=== PATIENT | female | born 1960 | race Caucasian/White ===

== ENCOUNTER 2019-08-27 14:27 | Inpatient (IN) | payer MEDICAID ==
[~2019-08-27] VITALS: Ht 162.6 cm; Wt 71.9 kg
[2019-08-27] VITALS (29 sets, daily range): BP systolic 57–113; BP diastolic 33–87; BMI 20.6
[2019-08-27 15:18] LABS: KETONE - SERUM LARGE mg/dL (NEGATIVE)
[2019-08-27 15:20] LABS: ALBUMIN 2.4 g/dL (3.4-5.0); ALKALINE PHOSPHATASE 143 U/L (46-116); ALT (SGPT) 16 U/L (10-68); BILIRUBIN - TOTAL 0.57 mg/dL (0.2-1.3); CREATININE - SERUM 2.2 mg/dL (0.6-1.3); MAGNESIUM - SERUM 2.8 mg/dL (1.8-2.4); PROTEIN - SERUM 5.8 g/dL (6.4-8.2); UREA NITROGEN 63 mg/dL (7-18); eGFR NON AFRICAN AMERICAN 24 mL/min (90-120)
[2019-08-27 16:12] LABS: CALC OSMOLALITY 315 mosm/kg (275-300); CHLORIDE - SERUM 92 mmol/L (98-107); POTASSIUM - SERUM 5.2 mmol/L (3.5-5.1)
[2019-08-27 16:13] LABS: CALCIUM 9.6 mg/dL (8.5-10.1)
[2019-08-27 16:15] LABS: CARBON DIOXIDE 6.9 mmol/L (21.0-32.0); GLUCOSE 907 mg/dL (74-106); SODIUM 126 mmol/L (136-145)
[2019-08-27 16:19] LABS: HEMATOCRIT 36.3 % (36.0-48.0); MCH 27.4 pg (26.0-34.0); MCHC 33.1 g/dL (31.0-37.0); MCV 82.9 fL (80.0-100.0); MEAN PLATELET VOLUME 10.4 fL (7.4-10.4); PLATELET COUNT 258 10x3/uL (130-400); RBC 4.38 10x6/uL (4.00-5.40); RDW 13.7 % (11.5-14.5); WBC 13.4 10x3/uL (4.8-10.8)
[2019-08-27 16:30] LABS: APPEARANCE HAZY (CLEAR); BILIRUBIN NEGATIVE (NEGATIVE); COLOR YELLOW (YELLOW); GLUCOSE 1000 mg/dL (NEGATIVE); KETONE MODERATE mg/dL (NEGATIVE); NITRITE NEGATIVE (NEGATIVE); PROTEIN TRACE mg/dL (NEGATIVE); SPECIFIC GRAVITY 1.015 (1.005-1.020); UROBILINOGEN NORMAL (NORMAL)
[2019-08-27 16:31] LABS: WHITE CELLS - URINE OCC /hpf (NEGATIVE)
[2019-08-27 16:32] LABS: BACTERIA FEW /hpf (NEGATIVE); RED CELLS - URINE 0-5 /hpf (0-5)
[2019-08-27 16:34] LABS: UDS - AMPHET NEGATIVE QUAL (NEGATIVE); UDS - BARB NEGATIVE QUAL (NEGATIVE); UDS - BENZO NEGATIVE QUAL (NEGATIVE); UDS - COCAINE NEGATIVE QUAL (NEGATIVE); UDS - OPIATE NEGATIVE QUAL (NEGATIVE); UDS - PCP NEGATIVE QUAL (NEGATIVE); UDS - THC NEGATIVE QUAL (NEGATIVE)
[2019-08-27 16:38] LABS: EOSINOPHILS 1 % (0-7); LYMPHOCYTES 18 % (15-50); NEUTROPHILS 80 % (40-80); PLATELET ESTIMATE NORMAL
--- NOTE | 2019-08-27 17:49 | NUR ---
PATIENT RECEIVED FROM HOME VIA EMS C/O AMS, PATIENT WAS FOUND IN BED BY EMS, PATIENT DOES NOT COMMUNICATE VERBALLY, WILL OPEN EYES, DOES NOT ACKNOWLEDGE VOICE COMMANDS, DISORIENTED TO PERSON PLACE AND TIME, PERRL, SKIN VERY COLD AND DRY, LUNG SOUNDS CLEAR AND EQUAL BI LAT, ABD SOFT, BOWEL SOUNDS POSITIVE X 4, PULSES PALP X 4. FSBS READS HIGH PER EMS. FAMILY STATED TO MEDIC PATIENT HAD NOT HAD INSULIN IN OVER A MONTH. PATIENT WITH 18G IV N/S 500CC BOLAS LEFT AC VIA EMS, 1V 18G SITED IN RIGHT AC ON ARRIVAL TO ED BY RN. DR. TORREZ AT BEDSIDE, PATIENT COMBATIVE, RECTAL TEMP 85.4. PATIENT SEDATED, ORALLY INTUBATED WITH 7.5MM EET TO MECHANICAL VENTILATION, INLINE SUCTION. PLACEMENT VERIFIED WITH C02 DETECTOR AND AUSCULATION. 16FR OG TUBE PLACED, VERIFIED WITH 20CC AIRBOLAS. MALIK CATH TO BLADDER, GRAVITY DRAIN, CLOUDY YELLOW URINE RETURN NOTED, CATH IS CRITICOR, BLADDER TEMP 29.1, BEAR HUGGER WARMING BLANKET PLACED ON PATIENT. DR. TORREZ AND DR. LUCERO AT BEDSIDE, PICC LINE ORDERED. ISABELLA LIEBERMAN PLACED PICC RIGHT UPPER ARM, VERIFIED WITH X-RAY. PATIENT GIVEN 3 AMPS [address] IVP PER [address] TORREZ. PATIENT GIVEN TOTAL OF 20Ux OF INSULIN IV PER DR. TORREZ, INSULIN DRIP AT 10Ux PER HOUR. PATIENT GIVEN TOTAL OF 5 LTRs N/S BOLAS, 3 ADDITIONAL AMPS OF HC03 IVP GIVEN PER DR. TORREZ. ALL FLUIDS RUNNING THROUGH FLUID WARMERS.
--- NOTE | 2019-08-27 19:05 | NUR ---
PT ARRIVES TO UNIT VIA BED AND ER STAFF. INTUBATED AND SEDATED, PT DOES NOT FOLLOW COMMANDS OR AROUSE TO VOICE. CLEAR/DIMINISHED LUNG SOUNDS, FIO2 60%, SPO2 100%. S1S2 HEARD, PERIPHERAL PULSES PRESENT. BOWEL SOUNDS HYPOACTIVE IN ALL QUADRANTS. MALIK CATH INTACT. SKIN COLD, ANSELMO HUGGER ON, TEMP 31.8 VIA MALIK, FLUID WARMER IN USE. SEE IV DRIP FLOWSHEET FOR INFUSIONS. PICC TO R UPPER ARM PATENT WITH DRSG CDI. BILATERAL AC PIV PATENT. ROOM VISIBLE FROM NURSES STATION. CPOC.
--- NOTE | 2019-08-27 19:30 | NUR ---
LUDMILA AT BEDSIDE, UPDATE PROVIDED AND NEW ORDERS REC'D.
[2019-08-27 20:33] LABS: ANION GAP 29.4 mmol/L (8-16); CALCIUM 7.3 mg/dL (8.5-10.1); CARBON DIOXIDE 10.2 mmol/L (21.0-32.0); CREATININE - SERUM 1.7 mg/dL (0.6-1.3)
[2019-08-27 20:34] LABS: MAGNESIUM - SERUM 1.8 mg/dL (1.8-2.4)
[2019-08-27 20:36] LABS: POTASSIUM - SERUM 2.6 mmol/L (3.5-5.1)
--- NOTE | 2019-08-27 21:00 | NUR ---
FAMILY AT BEDSIDE, UPDATE PROVIDED AND QUESTIONS ANSWERED. FAMILY DENIES NEEDS AT THIS TIME. PT REPOSITIONED WITH PROMINENCES BRIDGED. ORAL CARE PROVIDED. CPOC.
--- NOTE | 2019-08-27 23:45 | NUR ---
PT REMAINS SEDATED, WILL OPEN EYES AND MOVE EXTREMITIES BUT DOES NOT FOLLOW COMMANDS. ORAL CARE PROVIDED. SKIN WARM, TEMP 98.6. PT REPOSITIONED WITH PROMINENCES BRIDGED. HYPOTENSIVE, LEVOPHED INFUSING, SEE IV DRIP FLOWSHEET FOR TITRATIONS. ROOM VISIBLE FROM NURSES STATION. CPOC.
[2019-08-28] VITALS (94 sets, daily range): BP systolic 83–127; BP diastolic 47–95; BMI 20.4
[2019-08-28 00:39] LABS: CREATININE - SERUM 1.5 mg/dL (0.6-1.3); MAGNESIUM - SERUM 1.5 mg/dL (1.8-2.4)
[2019-08-28 00:47] LABS: ANION GAP 22.6 mmol/L (8-16); CARBON DIOXIDE 16.3 mmol/L (21.0-32.0); POTASSIUM - SERUM 2.9 mmol/L (3.5-5.1)
--- NOTE | 2019-08-28 03:45 | NUR ---
REASSESSMENT COMPLETE, SEE FLOWSHEET FOR ALL FINDINGS. ORAL CARE PROVIDED. PT REPOSITIONED WITH PROMINENCES BRIDGED. PT REMAINS UNABLE TO FOLLOW COMMANDS. ROOM VISIBLE FROM NURSES STATION. CPOC.
[2019-08-28 04:33] LABS: BASOPHILS 0.2 % (0-2); EOSINOPHILS 0 % (0-7); HEMATOCRIT 38.7 % (36.0-48.0); HEMOGLOBIN 13.9 g/dL (12-16); IMMATURE GRANULOCYTES 1.5 % (0-5); LYMPHOCYTES 11.2 % (15-50); MCH 27.4 pg (26.0-34.0); MCHC 35.9 g/dL (31.0-37.0); MEAN PLATELET VOLUME 9.8 fL (7.4-10.4); NEUTROPHILS 79.1 % (40-80); PLATELET COUNT 233 10x3/uL (130-400); RBC 5.07 10x6/uL (4.00-5.40); RDW 13.8 % (11.5-14.5)
[2019-08-28 04:54] LABS: MCV 76.3 fL (80.0-100.0); WBC 5.3 10x3/uL (4.8-10.8)
--- NOTE | 2019-08-28 05:00 | NUR ---
CHG BATH GIVEN, COMPLETE LINEN CHANGE PROVIDED. ORAL CARE COMPLETED.
[2019-08-28 05:22] LABS: CALCIUM 7.1 mg/dL (8.5-10.1); CARBON DIOXIDE 17.1 mmol/L (21.0-32.0); CHLORIDE - SERUM 114 mmol/L (98-107); CREATINE KINASE 285 UL (21-215); CREATININE - SERUM 1.5 mg/dL (0.6-1.3); MAGNESIUM - SERUM 1.5 mg/dL (1.8-2.4); SODIUM 146 mmol/L (136-145); UREA NITROGEN 46 mg/dL (7-18); eGFR NON AFRICAN AMERICAN 38 mL/min (90-120)
[2019-08-28 05:35] LABS: CALC OSMOLALITY 307 mosm/kg (275-300); GLUCOSE 182 mg/dL (74-106)
[2019-08-28 05:36] LABS: CKMB 16.7 U/L (0.0-3.6)
[2019-08-28 08:43] LABS: ALBUMIN 1.9 g/dL (3.4-5.0); ALKALINE PHOSPHATASE 78 U/L (46-116); BILIRUBIN - TOTAL 0.42 mg/dL (0.2-1.3); CALCIUM 7.2 mg/dL (8.5-10.1); CARBON DIOXIDE 16.9 mmol/L (21.0-32.0); CREATININE - SERUM 1.4 mg/dL (0.6-1.3); PROTEIN - SERUM 4.7 g/dL (6.4-8.2); SODIUM 146 mmol/L (136-145); UREA NITROGEN 45 mg/dL (7-18); eGFR NON AFRICAN AMERICAN 41 mL/min (90-120)
[2019-08-28 08:59] LABS: CHLORIDE - SERUM 115 mmol/L (98-107)
[2019-08-28 09:00] LABS: ALT (SGPT) 21 U/L (10-68); CALC OSMOLALITY 302 mosm/kg (275-300); GLUCOSE 99 mg/dL (74-106); MAGNESIUM - SERUM 2.6 mg/dL (1.8-2.4); POTASSIUM - SERUM 3.6 mmol/L (3.5-5.1)
[2019-08-28 09:01] LABS: PHOSPHOROUS 0.4 mg/dL (2.5-4.9)
[2019-08-28 09:02] LABS: KETONE - SERUM NEGATIVE (NEGATIVE)
--- NOTE | 2019-08-28 12:59 | NUR ---
DR LUCERO DECREASES VT FROM 550 TO 500, DECREASED RR FROM 24 TO 20 AND FIO2 FROM 60% TO 50%
[2019-08-28 13:22] LABS: ANION GAP 15.4 mmol/L (8-16); CALCIUM 7.2 mg/dL (8.5-10.1); CARBON DIOXIDE 20.4 mmol/L (21.0-32.0); CREATININE - SERUM 1.2 mg/dL (0.6-1.3); MAGNESIUM - SERUM 2.5 mg/dL (1.8-2.4); POTASSIUM - SERUM 3.8 mmol/L (3.5-5.1)
[2019-08-28 13:25] LABS: PHOSPHOROUS 0.7 mg/dL (2.5-4.9)
--- NOTE | 2019-08-28 13:37 | NUR ---
NOTIFIED DR KEYS ABOUT ABNORMAL LABS. NO NEW ORDERS RECIEVED. WILL CONTINUE TO MONITOR.
--- NOTE | 2019-08-28 23:36 | NUR ---
PATIENT HAD SMALL DARK BROWN BM SOFT NON FORMED. LOLA-AREA AND MALIK CARE COMPLETE. PATIENT REPOSITIONED FOR COMFORT. PATIENT IS VERY STRONG AND REACHES FOR ETT EVERY CHANCE SHE HAS.
[2019-08-29] VITALS (53 sets, daily range): BP systolic 80–123; BP diastolic 56–83
--- NOTE | 2019-08-29 06:24 | NUR ---
lab called due to not having 0400 results. lab here to draw patient within few minutes.
[2019-08-29 06:39] LABS: BASOPHILS 0.1 % (0-2); EOSINOPHILS 0.1 % (0-7); HEMATOCRIT 35.1 % (36.0-48.0); HEMOGLOBIN 12.7 g/dL (12-16); LYMPHOCYTES 12.6 % (15-50); MCH 27.5 pg (26.0-34.0); MCHC 36.2 g/dL (31.0-37.0); MCV 76.1 fL (80.0-100.0); MEAN PLATELET VOLUME 9.4 fL (7.4-10.4); MONOCYTES 6.4 % (2-11); NEUTROPHILS 79.8 % (40-80); RBC 4.61 10x6/uL (4.00-5.40)
[2019-08-29 06:43] LABS: PLATELET COUNT 164 10x3/uL (130-400)
[2019-08-29 07:07] LABS: KETONE - SERUM NEGATIVE (NEGATIVE)
[2019-08-29 07:23] LABS: ALBUMIN 1.7 g/dL (3.4-5.0); ALKALINE PHOSPHATASE 75 U/L (46-116); ALT (SGPT) 21 U/L (10-68); AMYLASE - SERUM 59 U/L (25-115); BILIRUBIN - TOTAL 0.32 mg/dL (0.2-1.3); CARBON DIOXIDE 20.1 mmol/L (21.0-32.0); CHLORIDE - SERUM 115 mmol/L (98-107); CREATININE - SERUM 0.9 mg/dL (0.6-1.3); LIPASE 224 U/L (73-393); POTASSIUM - SERUM 3.4 mmol/L (3.5-5.1); PROTEIN - SERUM 4.9 g/dL (6.4-8.2); SODIUM 147 mmol/L (136-145); T4 THYROXINE 4.1 ug/dL (4.7-13.3); eGFR NON AFRICAN AMERICAN 68 mL/min (90-120)
[2019-08-29 07:30] LABS: CALC OSMOLALITY 300 mosm/kg (275-300); GLUCOSE 193 mg/dL (74-106); UREA NITROGEN 24 mg/dL (7-18)
[2019-08-29 07:31] LABS: CALCIUM 6.7 mg/dL (8.5-10.1)
--- NOTE | 2019-08-29 19:15 | NUR ---
PT SEDATED, ETT PATENT TO VENT, ASSESSMENT COMPLETED, LUNGS CLEAR, RIGHT PICC INTACT WITH IVF'S INFUSING, BILAT SWR IN USE, OGT IN PLACE WITH GLUCERNA 1.5 @ 10 CC/HR, MALIK PATENT TO BSD, VITALS STABLE
--- NOTE | 2019-08-29 20:04 | MORECARE ---
CASE MANAGEMENT DISCHARGE SUMMARY PATIENT: ISABELLA MEYER UNIT: [id number] ADM DATE: 08/27/19 AGE: 59 : 60 SEX: F ROOM/BED: D.2303 AUTHOR: NAOMIE OWENS PHYSICIAN: REFERRING PHYSICIAN: REJI KEYS DO DATE OF SERVICE: 08/29/19 Discharge Plan Patient Name: ISABELLA MEYER Facility: [facility]:[place] : 1960 Planned Disposition: Anticipated Discharge Date: Discharge Date: Expected LOS: Initial Reviewer: [email or web address] Initial Review Date: 08/28/2019 Generated: 08/29/19 9:03 pm Coverage Notice Reviewer: [email or web address] Fernando Ghosh Notice Issued Date-Time: 08/29/2019 20:00 Notice Type: Patient Choice Letter Notice Delivered To: Family Member Relationship to Patient: Son Central Supply Technician Supervisor Name: Madan Nguyen Delivery Method: HAND - Hand Delivered Melinda Days: Prior Verbal Notification: Recipient Understood Notice: Yes Recipient Signature: Yes Med Rec Note Co-signed by Attending: Coverage Notice Comment: CARLY for Patient Name: ISABELLA MEYER Page [id number] at 2004 All edits/amendments must be made on the electronic document DICTATION DATE: 08/29/192002 DIRECTOR OF EMPLOYEE DEVELOPMENT: KENYA 08/29/192002 RPT#: [id number] DC DATE: STATUS: ADM IN [facility] [id number] [place] [address] END OF REPORT
--- NOTE | 2019-08-29 20:10 | MORECARE ---
CASE MANAGEMENT DISCHARGE SUMMARY PATIENT: ISABELLA MEYER UNIT: [id number] ADM DATE: 08/27/19 AGE: 59 : 60 SEX: F ROOM/BED: D.2303 AUTHOR: ROMAN,DOC PHYSICIAN: REFERRING PHYSICIAN: REJI KEYS DO DATE OF SERVICE: 08/29/19 Discharge Plan Patient Name: ISABELLA MEYER Facility: [facility]:[place] : 1960 Planned Disposition: Anticipated Discharge Date: Discharge Date: Expected LOS: Initial Reviewer: [email or web address] Initial Review Date: 08/28/2019 Generated: 08/29/19 9:10 pm Comments DCP- Discharge Planning Updated by [email or web address]: Meliza Ghosh on 08/29/19 7:[address] LATE ENTRY 08/28/19 Patient Name: ISABELLA MEYER Admission Status: ER Accout number: [id number] Admission Date: 08-27-2019 : 1960 Admission Diagnosis: Attending: REJI KEYS Current LOS: 1 Anticipated DC Date: Planned Disposition: Primary Insurance: MEDICAID [place] Discharge Planning Comments: CM met with patient's son Madan Nguyen [phone] to complete initial dc planning assessment. CM educated patient on the CM role and verbal consent given by patient to complete assessment. Patient is currently on vent sedated. Patient lives at home alone where she is independent with her care. At discharge patient plans to return home and feels this is a safe discharge. CM discussed availability of home health, rehab services, and medical equipment. Her son will be her warehouse delivery driver home. Madan has requested patient to discharge with Home Health CARLY signed. Uncertain at this time what patient's discharge needs will be. CM will continue to follow and will assist as needed with dc plans/needs. Executive Legal Secretary: Meliza Ghosh DCPIA - Discharge Planning Initial Assessment Updated by [email or web address]: Meliza Ghosh on 08/29/19 8:05 pm * How many steps to enter\exit or inside your home? 15 * PCP MICHELLE LINDSAY * [facility] * Preadmission Environment Home Alone * ADLs Independent * Equipment Shower Chair * List name and contact numbers for known caregivers / representatives who currently or will assist patient after discharge: MADAN NGUYEN - SON - [phone] * Verbal permission to speak to the caregivers and representatives has been obtained from the patient. N/A * Community resources currently utilized None * Additional services required to return to the preadmission environment? No * Can the patient safely return to the preadmission environment? Yes * Has this patient been hospitalized within the prior 30 days at any hospital? No Coverage Notice Reviewer: [email or web address] Fernando Ghosh Notice Issued Date-Time: 08/29/2019 20:00 Notice Type: Patient Choice Letter Notice Delivered To: Family Member Relationship to Patient: Son Preform Plate Maker Name: Madan Nguyen Delivery Method: HAND - Hand Delivered Melinda Days: Prior Verbal Notification: Recipient Understood Notice: Yes Recipient Signature: Yes Med Rec Note Co-signed by Attending: Coverage Notice Comment: CARLY for HH Last DP export: 08/29/19 7:03 p Patient Name: ISABELLA MEYER Page [phone] at 2009 All edits/amendments must be made on the electronic document DICTATION DATE: 08/29/192009 WAXER OPERATOR: KENYA 08/29/192009 RPT#: [id number] DC DATE: STATUS: ADM IN [facility] [address] [place] [address] END OF REPORT
--- NOTE | 2019-08-29 21:15 | NUR ---
PT FAMILY AT BEDSIDE, PT REMAINS SEDATED, NO DISTRESS NOTED, WILL CONT TO MONITOR
--- NOTE | 2019-08-29 23:00 | NUR ---
PT AROUSES TO STIMULI, NO DISTRESS NOTED, WILL CONT TO MONITOR
[2019-08-30] VITALS (24 sets, daily range): BP systolic 91–159; BP diastolic 58–93
--- NOTE | 2019-08-30 01:20 | NUR ---
PT BATHED PER STAFF, TOLERATED WELL, PULLS AGAINST RESTRAINTS, VITALS STABLE
[2019-08-30 04:43] LABS: BASOPHILS 0.1 % (0-2); EOSINOPHILS 0.4 % (0-7); HEMATOCRIT 33.6 % (36.0-48.0); HEMOGLOBIN 11.9 g/dL (12-16); IMMATURE GRANULOCYTES 0.3 % (0-5); LYMPHOCYTES 16.7 % (15-50); MCH 27.4 pg (26.0-34.0); MCHC 35.4 g/dL (31.0-37.0); MCV 77.4 fL (80.0-100.0); MEAN PLATELET VOLUME 9.5 fL (7.4-10.4); MONOCYTES 5.8 % (2-11); NEUTROPHILS 76.7 % (40-80); RBC 4.34 10x6/uL (4.00-5.40); RDW 15.5 % (11.5-14.5)
[2019-08-30 04:45] LABS: PLATELET COUNT 103 10x3/uL (130-400)
[2019-08-30 04:59] LABS: ALBUMIN 1.5 g/dL (3.4-5.0); ALKALINE PHOSPHATASE 76 U/L (30-120); ALT (SGPT) 17 U/L (10-68); BILIRUBIN - TOTAL 0.45 mg/dL (0.2-1.3); CARBON DIOXIDE 22.3 mmol/L (21.0-32.0); CHLORIDE - SERUM 114 mmol/L (98-107); GLUCOSE 174 mg/dL (74-106); MAGNESIUM - SERUM 1.9 mg/dL (1.8-2.4); PROTEIN - SERUM 4.2 g/dL (6.4-8.2); SODIUM 145 mmol/L (136-145)
[2019-08-30 05:06] LABS: CALC OSMOLALITY 292 mosm/kg (275-300); CALCIUM 7.1 mg/dL (8.5-10.1); CREATININE - SERUM 0.6 mg/dL (0.6-1.3); POTASSIUM - SERUM 4.2 mmol/L (3.5-5.1); UREA NITROGEN 13 mg/dL (7-18); eGFR NON AFRICAN AMERICAN > 90 mL/min (90-120)
[2019-08-30 05:38] LABS: KETONE - SERUM NEGATIVE (NEGATIVE)
--- NOTE | 2019-08-30 05:58 | NUR ---
PT CCOPERATIVE WITH CARE, NO CHANGE NOTED FROM INITIAL ASSESSMENT, VITALS STABLE
--- NOTE | 2019-08-30 10:21 | NUR ---
0700 PT RECIEVED SEDATED BUT EASILY AWAKENS, ETT SECURED, OGT WITH GLUCERNA INFUSING AT 10, R PICC DRESSINGN CDI R AC PIV SL SEE IV FLOWSHEET, MALIK DRAINING YELLOW URINE, SEE SHIFT ASSESSMENT FOR DETAILS 0900 AM MEDS GIVEN, LINENS CHANGED AFTER LOOSE BM, TF INCREASED TO 20ML/HR
--- NOTE | 2019-08-30 10:34 | NUR ---
PT REPOSITIONED Q2H ON SIDES BUT WILL KICK LEGS TO SCOOT OFF OF PILLOWS AND ONTO BACK, DISCUSSED IMPORTANCE OF STAYING OFF BOTTOM WITH PT WHO NODS IN UNDERSTANDING BUT CONTINUES TO DO SO
[2019-08-30 12:22] LABS: % SATURATION 39 % (15-55); IRON 47 ug/dl (35-150); TOTAL IRON BIND CAPACITY 120 ug/dl (260-445); UNSAT IRON BIND CAPACITY 73 ug/dl (150-375)
--- NOTE | 2019-08-30 15:01 | NUR ---
14:50 PLACED PT ON CPAP 10/5 40%
--- NOTE | 2019-08-30 15:21 | NUR ---
PLACED PT BACK ON AC FOR LOW VT
--- NOTE | 2019-08-30 17:24 | NUR ---
PT REPOSITIONED AND ORAL CARE DONE [id number], FAMILY HERE FOR AFTERNOON VISITATIONS AND UPDATED
--- NOTE | 2019-08-30 19:15 | NUR ---
PT INTUBATED AND LIGHTLY SEDATED - OPENS EYES SPONTANEOUSLY FOLLOWS COMMANDS, SHIFT ASSESSMENT COMPLETED SEE FLOWSHEET
--- NOTE | 2019-08-30 20:45 | NUR ---
PT FAMILY AT BEDSIDE - REPOSITIONED FOR COMFORT, FENTYL TITRATED AT THIS TIME FOR PAIN/SEDATION. SEE IV FLOWSHEET. PATIENT RECEIVED MEDICATIONS SEE EMAR FOR ADMINISTRATION DETAILS. CPOC
--- NOTE | 2019-08-30 23:30 | NUR ---
REASSESSMENT COMPLETED SEE FLOWSHEET
[2019-08-31] VITALS (24 sets, daily range): BP systolic 84–144; BP diastolic 60–91
--- NOTE | 2019-08-31 00:05 | NUR ---
UNABLE TO OBTAIN SRS PATIENT INTUBATED AND SEDATED
[2019-08-31] MEDS ORDERED: LISINOPRIL10 MG (00:06)
[2019-08-31] MEDS ORDERED: LAMICTAL100 MG (00:06)
[2019-08-31] MEDS ORDERED: LEVEMIR IN100 UNITS/ (00:06)
--- NOTE | 2019-08-31 00:47 | NUR ---
PT RESTING COMFORTABLY RT AT BEDSIDE
--- NOTE | 2019-08-31 00:51 | NUR ---
PATIENT ANXIOUS ATTEMPTING TO SIT UP AND CLIMB OUT OF BED, PATIENT IS RESTRAINED AND INTUBATED SEDATION ADJUSTED AT THIS TIME.
--- NOTE | 2019-08-31 01:15 | NUR ---
PT RESTLESS, AGITATED - TACHYCARDIC AND AFEBRILE, BM NOTED - CHG BATH AND FULL LINEN CHANGE COMPLETED AT THIS TIME
--- NOTE | 2019-08-31 02:30 | NUR ---
BM NOTED - LINEN CHANGE AND MALIK CARE COMPLETED AT THIS TIME
--- NOTE | 2019-08-31 02:45 | NUR ---
PT AGITATED INCREASE SEDATION - SEE FLOWSHEET
--- NOTE | 2019-08-31 03:38 | NUR ---
REASSESSMENT COMPLETED SEE FLOWSHEET
[2019-08-31 06:36] LABS: BASOPHILS 0.1 % (0-2); EOSINOPHILS 0.7 % (0-7); HEMATOCRIT 31.1 % (36.0-48.0); HEMOGLOBIN 10.4 g/dL (12-16); IMMATURE GRANULOCYTES 0.3 % (0-5); LYMPHOCYTES 14.6 % (15-50); MCHC 33.4 g/dL (31.0-37.0); MEAN PLATELET VOLUME 10.3 fL (7.4-10.4); MONOCYTES 7.1 % (2-11); NEUTROPHILS 77.2 % (40-80); PLATELET COUNT 91 10x3/uL (130-400); RBC 3.85 10x6/uL (4.00-5.40); RDW 16.1 % (11.5-14.5); WBC 6.7 10x3/uL (4.8-10.8)
[2019-08-31 06:48] LABS: MCV 80.8 fL (80.0-100.0)
[2019-08-31 06:54] LABS: ALBUMIN 1.4 g/dL (3.4-5.0); ALKALINE PHOSPHATASE 73 U/L (30-120); ALT (SGPT) 17 U/L (10-68); BILIRUBIN - TOTAL 0.37 mg/dL (0.2-1.3); CALC OSMOLALITY 287 mosm/kg (275-300); CALCIUM 7.3 mg/dL (8.5-10.1); CARBON DIOXIDE 22.4 mmol/L (21.0-32.0); CHLORIDE - SERUM 113 mmol/L (98-107); CREATININE - SERUM 0.7 mg/dL (0.6-1.3); GLUCOSE 205 mg/dL (74-106); MAGNESIUM - SERUM 1.8 mg/dL (1.8-2.4); POTASSIUM - SERUM 4.8 mmol/L (3.5-5.1); PROTEIN - SERUM 4.3 g/dL (6.4-8.2); SODIUM 142 mmol/L (136-145); UREA NITROGEN 10 mg/dL (7-18); eGFR NON AFRICAN AMERICAN > 90 mL/min (90-120)
[2019-08-31 06:55] LABS: PHOSPHOROUS 2.3 mg/dL (2.5-4.9)
--- NOTE | 2019-08-31 07:00 | NUR ---
AWAKE OBEYS COMMANDS. ETT SECURE TO VENT, BILATERAL LUNG SOUNDS EQUAL AND CLEAR. ABD FIRM WITH BOWEL SOUNDS. OG CLAMPED DUE TO HIGH RESIDUAL. HEAD OF BED ELEVATED 30 DEGREES. RIGHT UPPER ARM TRIPLE LUMEN PICC LINE INFUSING WITH D51/2NS WITH 4O MEQ KCL AT 125 ML HOUR. FENTANYL AT 400 MCG/HOUR. PATIENT VERY TIGHT MUSCLES IN ARMS AND FACE ENCOURAGE TO RELAX. MONITOR ST. SKIN WARM AND DRY.
--- NOTE | 2019-08-31 09:00 | NUR ---
RESIDUAL PER OG GREATER THAN 200CC. MEDS GIVEN TUBE FEEDING NOT RESTARTED. FIRST STEP MATTRESS ON BED.
--- NOTE | 2019-08-31 09:20 | NUR ---
FENTANYL TURNED DOWN TO 200 MCG/HOUR FOR CPAP TRAILS
--- NOTE | 2019-08-31 10:00 | NUR ---
PATIENT AWAKE TRYING TO WRITE NOTES, UNABLE TO READ WHAT PATIENT IS WRITING.
--- NOTE | 2019-08-31 10:47 | NUR ---
ATTEMPTED CPAP TRAIL ON VENT. PATIENT RESP RATE UP IN 40'S. TV LESS THAN 100. HEART RATE UP IN 130'S BLOOD PRESSURE 180/120. AFTER 15 MINUTES. RETURNED TO AC ON VENT. VERSED 2 MG GIVEN TO RELAX PATIENT.
--- NOTE | 2019-08-31 12:00 | NUR ---
RESTING COMFORTABLY ON RIGHT SIDE. SMALL DARK BROWN FORMED BM. PERICARE AND MALIK CATH CARE DONE.
--- NOTE | 2019-08-31 12:54 | NUR ---
DR. WAGGONER HERE NEW ORDERS RECEIVED. PATIENT RESTING COMFORTABLY NO DISTRESS FAMILY HERE QUESTIONS ANSWERED UPDATE GIVEN
--- NOTE | 2019-08-31 13:30 | NUR ---
TUBE FEEDING RESTARTED GLUCERNA AT 30 ML HOUR. REGLAN GIVEN. TUBE CHECKED FOR PLACEMENT WITH AIR BOLUS AUDIBLE IN ABD. PATIENT RESTING COMFORTABLY NO DISTRESS
--- NOTE | 2019-08-31 15:00 | NUR ---
PATIENT REPOSITIONED IN GOOD MOOD. SMILING NO DISTRESS. FENTANYL INCREASED TO 400 MCG/HOUR PER DR NIC LIU.
--- NOTE | 2019-08-31 19:00 | NUR ---
SHIFT ASSESSMENT COMPLETED. PT CARE ASSUMED. MONITORS ON AND WORKING,VITALS STABLE. VENT SETTINGS NOTED. SEE FLOW SHEET FOR FURTHER DETAILS. WILL CONTINUE TO OBSERVE.
--- NOTE | 2019-08-31 21:00 | NUR ---
FAMILY AT BEDSIDE, UPDATE PROVIDED, MONITORS ON AND WORKING, PT TURNED AND REPOSITIONED FOR COMFORT, WILL CONTINUE TO OBSERVE.
--- NOTE | 2019-08-31 23:00 | NUR ---
PT TURNED AND REPOSITIONED FOR COMFORT, MONITORS ON AND WORKING, VITALS STABLE, SEE FLOW SHEET FOR FURTHER DETAILS. WILL CONTINUE TO OBSERVE.
[2019-09-01] VITALS (24 sets, daily range): BP systolic 108–160; BP diastolic 60–108
--- NOTE | 2019-09-01 01:00 | NUR ---
PT TURNED AND REPOSITIONED FOR COMFORT. MONITORS ON AND WORKING, VITALS STABLE, ORAL CARE PROVIDED AT THIS TIME, WILL CONTINUE TO OBSERVE.
--- NOTE | 2019-09-01 03:00 | NUR ---
PT TURNED AND REPOSITIONED FOR COMFORT, MONITORS ON AND WORKING, VITALS STABLE, SEE FLOW SHEET FOR FURTHER DETAILS, WILL CONTINUE TO OBSERVE.
--- NOTE | 2019-09-01 05:00 | NUR ---
LINEN CHANGE AND CHG BATH GIVEN AT THIS TIME, MONITORS ON AND WORKING, VITALS STABLE, WILL CONTINUE TO OBSERVE.
[2019-09-01 05:57] LABS: ALBUMIN 1.6 g/dL (3.4-5.0); ALKALINE PHOSPHATASE 85 U/L (30-120); ALT (SGPT) 19 U/L (10-68); CALC OSMOLALITY 283 mosm/kg (275-300); CALCIUM 7.5 mg/dL (8.5-10.1); CARBON DIOXIDE 24.8 mmol/L (21.0-32.0); CHLORIDE - SERUM 107 mmol/L (98-107); GLUCOSE 200 mg/dL (74-106); PROTEIN - SERUM 4.8 g/dL (6.4-8.2); SODIUM 140 mmol/L (136-145); UREA NITROGEN 10 mg/dL (7-18)
[2019-09-01 05:58] LABS: BASOPHILS 0.2 % (0-2); HEMATOCRIT 32.1 % (36.0-48.0); HEMOGLOBIN 10.6 g/dL (12-16); IMMATURE GRANULOCYTES 1.8 % (0-5); LYMPHOCYTES 29.1 % (15-50); MCH 26.9 pg (26.0-34.0); MCV 81.5 fL (80.0-100.0); MONOCYTES 14.8 % (2-11); NEUTROPHILS 52.1 % (40-80); PLATELET COUNT 91 10x3/uL (130-400); RBC 3.94 10x6/uL (4.00-5.40); RDW 15.4 % (11.5-14.5)
[2019-09-01 06:03] LABS: CREATININE - SERUM 0.5 mg/dL (0.6-1.3); eGFR NON AFRICAN AMERICAN > 90 mL/min (90-120)
[2019-09-01 07:02] LABS: WBC 4.5 10x3/uL (4.8-10.8)
--- NOTE | 2019-09-01 07:30 | NUR ---
PATIENT FOLLOWS COMMANDS. ON 450 MCG ON FENTANYL. AWAKE. MOVES ALL EXTREMITIES. TUBE FEEDING PAUSED. ABDOMEN IS FIRM AND DISTENDED ON PALPATION. PALP X4 PULSES. LUNGS ARE CRACKLES BILAT. BETTER WHEN SUCTIONED OUT. NO ACUTE DISTRESS. PATIENT ATTEMPTING TO COMMUNCIATE WITH ME. PATIENT CAN TURN HERSELF. SHE IS LAYING ON HER LEFT SIDE AT THIS TIME. STATES SHE UNDERSTANDS TO NOT PULL THAT TUBE. REORIENTED TO WHY WE USE RESTRAINTS. SEE ASSESSMENT. SEE ADL'S. WILL CONTINUE TO MONITOR
--- NOTE | 2019-09-01 09:00 | NUR ---
PATIENT STARTED CPAP TRIALS.
[2019-09-01 10:04] LABS: PLATELET ESTIMATE DECREASED
--- NOTE | 2019-09-01 10:45 | NUR ---
patient extubated. no acute distress.
--- NOTE | 2019-09-01 13:13 | NUR ---
Nutrition follow-up: Pt just extubated today NPO Labs reviewed RDN will monitor patients diet advancement and tolerance. Following.
--- NOTE | 2019-09-01 14:11 | NUR ---
SPOKE WITH FAMILY REGARDING PATIENT'S STATUS. STATED THEY WOULD COME VISIT PATIENT.
--- NOTE | 2019-09-01 15:36 | NUR ---
patient family member at bedside. update given. ice chips provided. no acute distress. spo2 monitor stayed at 100% on 2 l
--- NOTE | 2019-09-01 17:14 | NUR ---
patient ambulated to chair. then to bedside commode. requested to dc hernandez to decrease risk of UTI. dc'd hernandez. educated on why she must urinate here soon.
--- NOTE | 2019-09-01 19:00 | NUR ---
BEDSIDE REPORT AND SHIFT ASSESSMENT COMPLETE, SEE FLOWSHEET. VSS, NO SIGNS OF ACUTE DISTRESS NOTED. R UPPER ARM PICC PATENT, SEE IV FLOWSHEET. PT AMBULATED TO BEDSIDE COMMODE AND BACK TO BED WITH ASSISTANCE. 1 SMALL, FORMED BM. DENIES ANY OTHER NEEDS AT THIS TIME.
--- NOTE | 2019-09-01 21:00 | NUR ---
MEDS GIVEN PER OCT. PT ASSISTED TO BEDSIDE COMMODE AND BACK TO BED. CALL LIGHT IN REACH, WILL MONITOR.
--- NOTE | 2019-09-01 23:00 | NUR ---
LIQUID BM IN BED, CHG BATH AND LINEN CHANGE COMPLETE. PT ASSISTED BACK TO BED. REASSESSMENT COMPLETE.
--- NOTE | 2019-09-01 23:50 | NUR ---
ARRYTHMIA NOTED ON MONITOR. DR WAGGONER NOTIFIED. NEW ORDERS RECEIVED.
[2019-09-02] VITALS (21 sets, daily range): BP systolic 99–154; BP diastolic 58–105; Ht 162.6 cm; Wt 71.9 kg
[2019-09-02 00:26] LABS: CALC OSMOLALITY 284 mosm/kg (275-300); CALCIUM 7.7 mg/dL (8.5-10.1); CARBON DIOXIDE 30.2 mmol/L (21.0-32.0); CHLORIDE - SERUM 107 mmol/L (98-107); CREATININE - SERUM 0.5 mg/dL (0.6-1.3); GLUCOSE 162 mg/dL (74-106); MAGNESIUM - SERUM 1.8 mg/dL (1.8-2.4); SODIUM 142 mmol/L (136-145); UREA NITROGEN 8 mg/dL (7-18); eGFR NON AFRICAN AMERICAN > 90 mL/min (90-120)
--- NOTE | 2019-09-02 03:30 | NUR ---
CARDIOLOGY CONSULTED PER DR WAGGONER. NEW ORDERS RECEIVED.
[2019-09-02 05:15] LABS: BASOPHILS 0 % (0-2); EOSINOPHILS 2.1 % (0-7); HEMATOCRIT 30.6 % (36.0-48.0); HEMOGLOBIN 10.2 g/dL (12-16); IMMATURE GRANULOCYTES 2.3 % (0-5); LYMPHOCYTES 31.9 % (15-50); MCH 27.2 pg (26.0-34.0); MCHC 33.3 g/dL (31.0-37.0); MCV 81.6 fL (80.0-100.0); MEAN PLATELET VOLUME 10.3 fL (7.4-10.4); MONOCYTES 20.6 % (2-11); NEUTROPHILS 43.1 % (40-80); PLATELET COUNT 93 10x3/uL (130-400); RBC 3.75 10x6/uL (4.00-5.40); RDW 14.7 % (11.5-14.5); WBC 4.3 10x3/uL (4.8-10.8)
--- NOTE | 2019-09-02 05:25 | NUR ---
PT SLEEPING. VSS, NO SIGNS OF DISTRESS NOTED. NSR ON MONITOR.
[2019-09-02 05:41] LABS: ALBUMIN 1.5 g/dL (3.4-5.0); ALKALINE PHOSPHATASE 68 U/L (30-120); BILIRUBIN - TOTAL 0.37 mg/dL (0.2-1.3); CALC OSMOLALITY 281 mosm/kg (275-300); CALCIUM 7.4 mg/dL (8.5-10.1); CARBON DIOXIDE 29.3 mmol/L (21.0-32.0); CHLORIDE - SERUM 108 mmol/L (98-107); CREATININE - SERUM 0.4 mg/dL (0.6-1.3); GLUCOSE 118 mg/dL (74-106); PROTEIN - SERUM 4.3 g/dL (6.4-8.2); SODIUM 142 mmol/L (136-145); UREA NITROGEN 8 mg/dL (7-18); eGFR NON AFRICAN AMERICAN > 90 mL/min (90-120)
[2019-09-02 05:45] LABS: ALT (SGPT) 10 U/L (10-68)
--- NOTE | 2019-09-02 06:30 | NUR ---
PT ASSISTED ON BED SALAZAR, 1 LG LIQUID BM. BOTTOM RED. AM MEDS GIVEN PER MAR AND TOLERATED.
--- NOTE | 2019-09-02 07:30 | NUR ---
PATIENT IS ALERT AND ORIENTED. NO ACUTE DISTRESS. STATES STOMACH PRESSURE HAS DECREASED SINCE YESTERDAY. REPORT RECIEVED THAT PATIENT HAD MANY BOWEL MOVEMENTS. STOMACH IS STILL A LITTLE FIRM AND DISTENDED. RECIEVED IN REPORT PATIENT GOES INTO VTACH WHEN AMBULATED. ON AMIO DRIP. STILL ON AMIO BOLUS. PAITNET SITTING UP IN BED ON OVERLAY. STATES HER BOTTOM HURTS. EDUCATED ON WHY SHE SHOULD LAY ON SIDE TO SIDE INSTEAD ON HER BOTTOM. PICC LINE IN PLACE. 2 L NC. CTA BILAT LOBES. 20 NS INFUSING. BOTTOM IS RED AND NONBLANCHABLE. WILL CONTINUE TO MONITOR PATIENT. VSS DURING THIS TIME. NSR WITH HR OF 95.
--- NOTE | 2019-09-02 09:06 | NUR ---
patient had bm. cleaned up during this time
--- NOTE | 2019-09-02 09:43 | NUR ---
CARDIOLOGY AT BEDSIDE. CHG BATH GIVEN. LINEN CHANGED. BM AT THIS TIME. NO RUNS. DR WINTERS AT BEDSIDE.
--- NOTE | 2019-09-02 09:44 | NUR ---
PATIENT HAS RED SORE ON BOTTOM. BUTT CREAM APPLIED OT COCCYX.
--- NOTE | 2019-09-02 11:38 | NUR ---
patient had bm. no acute distress. new linen change. will continue to monitor
--- NOTE | 2019-09-02 13:28 | NUR ---
PT HAS 2CM X 2CM NON-BLANCHABLE REDNESS ON SACRUM. (STAGE 1 PRESSURE INJURY) SHE SAYS SHE PREFERS TO USE BARBIE'S ON THE AREA. SHE ALSO IS AWARE OF THE IMPORTANCE OF STAYING OFF THE AREA BY TURNING ON HER SIDE.
--- NOTE | 2019-09-02 15:30 | NUR ---
PATIENT AMBULATED TO CHAIR WITH PHYSICAL THEARPY FREE OF VTACH RUNS. THEN TRASNFERRED TO BEDSIDE COMMODE. THEN BACK TO BED. PATIENT STAYED IN NSR. AMIO STILL INFUSING. 0.5 MG. PATIENT DENIES FEELING FUNNY OR WEIRD. FEELS CONFIDENT WHEN AMBULATING. ON 2 L. WILL CONTINUE TO MONITOR
--- NOTE | 2019-09-02 19:00 | NUR ---
BEDSIDE REPORT AND SHIFT ASSESSMENT COMPLETE, SEE FLOWSHEET. VSS, NO SIGNS OF DISTRESS NOTED. NSR ON MONITOR, AMIO GTT AT 0.5. PT AMBULATED FROM CHAIR TO BEDSIDE COMMODE WITH MIN ASSISTANCE. CALL LIGHT IN REACH, WILL MONITOR.
--- NOTE | 2019-09-02 21:00 | NUR ---
CHG BATH AND PARTIAL LINEN CHANGE COMPLETE BY FAMILY. MEDS GIVEN PER MAR. WILL MONITOR.
--- NOTE | 2019-09-02 23:00 | NUR ---
LG BM IN BED, PT ASSISTED TO BEDSIDE COMMODE. CHG BATH AND LINEN CHANGE COMPLETE. PT ASSISTED BACK TO BED. WILL MONITOR.
[2019-09-03] VITALS (8 sets, daily range): BP systolic 102–130; BP diastolic 55–88
--- NOTE | 2019-09-03 01:00 | NUR ---
ASSISTED PT TO BEDSIDE COMMODE AND BACK TO BED.
--- NOTE | 2019-09-03 05:00 | NUR ---
ASSISTED PT TO BEDSIDE COMMODE AND BACK TO BED. PT REFUSED TO LET ME CHANGE HER PICC LINE DRESSING, STATES SHE WANTS TO GO BACK TO SLEEP.
[2019-09-03 06:48] LABS: ALBUMIN 1.5 g/dL (3.4-5.0); ALKALINE PHOSPHATASE 74 U/L (30-120); BILIRUBIN - TOTAL 0.23 mg/dL (0.2-1.3); CALC OSMOLALITY 280 mosm/kg (275-300); CALCIUM 7.2 mg/dL (8.5-10.1); CARBON DIOXIDE 30.2 mmol/L (21.0-32.0); CHLORIDE - SERUM 108 mmol/L (98-107); CREATININE - SERUM 0.5 mg/dL (0.6-1.3); GLUCOSE 94 mg/dL (74-106); POTASSIUM - SERUM 3.4 mmol/L (3.5-5.1); PROTEIN - SERUM 4.5 g/dL (6.4-8.2); SODIUM 142 mmol/L (136-145); UREA NITROGEN 7 mg/dL (7-18); eGFR NON AFRICAN AMERICAN > 90 mL/min (90-120)
[2019-09-03 06:55] LABS: ALT (SGPT) 16 U/L (10-68)
[2019-09-03 07:06] LABS: BASOPHILS 0 % (0-2); EOSINOPHILS 0.9 % (0-7); HEMATOCRIT 32.2 % (36.0-48.0); HEMOGLOBIN 10.6 g/dL (12-16); IMMATURE GRANULOCYTES 2.8 % (0-5); LYMPHOCYTES 17.5 % (15-50); MCHC 32.9 g/dL (31.0-37.0); MCV 82.1 fL (80.0-100.0); MEAN PLATELET VOLUME 10.6 fL (7.4-10.4); MONOCYTES 17.2 % (2-11); NEUTROPHILS 61.6 % (40-80); RBC 3.92 10x6/uL (4.00-5.40); RDW 14.5 % (11.5-14.5)
--- NOTE | 2019-09-03 07:30 | NUR ---
PATIENT UP TO BEDSIDE TOILET WITH ASSISTANCE. BREIF CHANGED. SMALL BM. LINEN CHANGE COMPLETE WHILE PT UP TO BEDSIDE.
[2019-09-03 07:33] LABS: PLATELET COUNT 118 10x3/uL (130-400); WBC 6.5 10x3/uL (4.8-10.8)
--- NOTE | 2019-09-03 07:49 | NUR ---
ASSISTED PT WITH BREAKFAST SETUP.
--- NOTE | 2019-09-03 11:15 | NUR ---
PATIENT RESTING WITH EYES CLOSED. VSS. WILL CONTINUE TO MONITOR.
--- NOTE | 2019-09-03 12:15 | NUR ---
AMIODARONE GTT D/C AT THIS TIME. PO DOSE WAS ADMINSITERED AT 1027. WILL MONITOR CARDIAC RHYTHM.
--- NOTE | 2019-09-03 13:14 | NUR ---
Nutrition follow-up: Diet: ADA consistent CHO PO intake 75-100% of meals Labs reviewed Wt: 155# PO intake good at this time Out to floor today. RDN following.
--- NOTE | 2019-09-03 13:50 | NUR ---
PATIENT FINISHING UP LUNCH IN CHAIR. ASSISTED UP TO BEDSIDE COMMODE. UNABLE TO HAVE BM. ASSISTED BACK TO BED. PATIENT DENIES ANY OTHER NEEDS AT THIS TIME. BED IN LOW POSITION. CALL LIGHT IN REACH.
--- NOTE | 2019-09-03 15:50 | NUR ---
PATIENT ACTIVELY VOMITING. VERBAL ORDERS FROM DR WAGGONER TO CHANGE ZOFRAN ORDER TO Q4H FROM Q6H AND GIVE DOSE NOW.
--- NOTE | 2019-09-03 21:29 | NUR ---
PT LYING IN BED AWAKE ALERT AND ORIENTED x4. NO SIGNS OR SYMPTOMS OF DISTRESS NOTED. RESPIRATIONS EVEN AND UNLABORED. PT HAS RIGHT UPPER ARM PICC RUNNINGNORMAL SALINE @20. PT IS CONTINENT OF BOWELL AND BLADDER. BOWELL SOUNDS ACTIVE x4. PT REQUESTED TO GET TO BEDSIDE COMODE. PT HAD MASSIVE DIARRHEA BOWELL MOVEMENT x2. PT WASHED UP WHILE SITTING ON BEDSIDE COMODE. BED CHANGED AND PT PLACED BACK IN BED. REDNED AREA TO BUTTOCKS. BUTT PASTE APPLIED. BREIF IS PLACED AND PT IS TURNED TO RIGHT SIDE. YELLOW GOWN AND FALL SOCKS ARE ON PT. CALL LIGHT IS WITHIN REACH AND BED IS IN LOWEST POSITION. PT ENCOURGED TTO CALL FOR HELP WHEN GETTING IN AND OUT OF BED. WILL CONTINUE TO MONITOR.
--- NOTE | 2019-09-03 22:49 | NUR ---
PT LYING IN SUPINE POSITION. AWAKE AND ORINNTED x4. NO PEDAL PULSE WITH DOPPLAR TO RIGHT FOOT. WILL CONTINUE TO OBSERVE.
--- NOTE | 2019-09-03 23:46 | NUR ---
PT UP TO BEDSIDE COMMODE. LOOSE WATERY DIARRHEA NOTED. DIET COKE GIVEN WILL CONTINUE TO MONITOR.
--- NOTE | 2019-09-04 02:00 | NUR ---
PT LYING IN BED NO SIGNS OR SYMPTOMS OF DISTRESS NOTED. WILL CONTINUE TO MONITOR
--- NOTE | 2019-09-04 02:00 | NUR ---
LYING IN SUPINE POSITION. SOME MOVEMENT OF LOWER RIGHT LEG NOTED. PT ENCOURGED TO LAY STILL. QUARTER SIZE BLOOD STAIN NOTED TO DRESSING ON LEFT GROIN. LEFT GROIN INCESION IS SOFT TO TOUCH. BLOOD STAIN IS MARKED FOR FURTHER OBSERVATION. STILL NO PEDAL PULSE TO RIGHT FOOT VIA PALPATION OR DOPPLER. NO COMPLAINTS AT THIS TIME. WILL CONTINUE TO OBSERVE
[2019-09-04 03:40] VITALS: BP 106/62
--- NOTE | 2019-09-04 05:35 | NUR ---
PT UP TO BEDSIDE LOOSE BOWELL MOVEMENT NOTED. WILL CONTINUE TO OBSERVE
[2019-09-04 06:58] LABS: BASOPHILS 0.4 % (0-2); EOSINOPHILS 0.5 % (0-7); HEMATOCRIT 28.7 % (36.0-48.0); HEMOGLOBIN 9.4 g/dL (12-16); IMMATURE GRANULOCYTES 3.2 % (0-5); LYMPHOCYTES 19.5 % (15-50); MCH 27.3 pg (26.0-34.0); MCHC 32.8 g/dL (31.0-37.0); MCV 83.4 fL (80.0-100.0); MEAN PLATELET VOLUME 10.8 fL (7.4-10.4); MONOCYTES 12.4 % (2-11); PLATELET COUNT 120 10x3/uL (130-400); RBC 3.44 10x6/uL (4.00-5.40); RDW 14.4 % (11.5-14.5); WBC 5.7 10x3/uL (4.8-10.8)
[2019-09-04 07:00] VITALS: BP 125/67
[2019-09-04 07:18] LABS: ALBUMIN 1.3 g/dL (3.4-5.0); ALKALINE PHOSPHATASE 73 U/L (30-120); ALT (SGPT) 12 U/L (10-68); CALC OSMOLALITY 278 mosm/kg (275-300); CALCIUM 7.2 mg/dL (8.5-10.1); CARBON DIOXIDE 26.2 mmol/L (21.0-32.0); CHLORIDE - SERUM 106 mmol/L (98-107); CREATININE - SERUM 0.5 mg/dL (0.6-1.3); POTASSIUM - SERUM 3.3 mmol/L (3.5-5.1); PROTEIN - SERUM 4.2 g/dL (6.4-8.2); SODIUM 140 mmol/L (136-145); UREA NITROGEN 7 mg/dL (7-18); eGFR NON AFRICAN AMERICAN > 90 mL/min (90-120)
[2019-09-04 07:29] LABS: GLUCOSE 143 mg/dL (74-106)
--- NOTE | 2019-09-04 08:20 | NUR ---
WALKING WITH PT. TOLERATING WELL
--- NOTE | 2019-09-04 09:00 | NUR ---
PT HAVING FREQUENT LIQUID BM'S. ORDER RECIEVED TO HOLD REGLAN.
[2019-09-04 11:00] VITALS: BP 116/59
[2019-09-04 15:57] VITALS: BP 117/67
--- NOTE | 2019-09-04 19:39 | NUR ---
PT LYING IN BED SIGNS AND SYMPTOMS OF DISTRSS NOTED. PT IS RECIVEING 2ND UNIT OF BLOOD. VITAL SIGNS ARE T. 97.9 B/P.157/87 P.86 RR.28 O2 80. [facility]AP[facility] RESPONSE WAS CALLED. JORDON HUMMEL APN NOTIFIED. VITAL SIGNS ARE NOW T.98.0 P.90 RR 26 AND O2.96% PT IS 98 SINUS RYTHUM BBB ON TELEMETRY. JORDON HUMMEL HAS ORDERED [facility]. DR MITCHELL HAS BEEN PAGED. WILL FAIDINDEEDEE TO OBSERVE
[2019-09-04 20:00] VITALS: BP 109/58
--- NOTE | 2019-09-04 21:14 | MORECARE ---
CASE MANAGEMENT DISCHARGE SUMMARY PATIENT: ISABELLA MEYER UNIT: [id number] ADM DATE: 08/27/19 AGE: 59 : 60 SEX: F ROOM/BED: D.7976 AUTHOR: ROMAN,DOC PHYSICIAN: REFERRING PHYSICIAN: REJI KEYS DO DATE OF SERVICE: 09/04/19 Discharge Plan Patient Name: ISABELLA MEYER Facility: [facility]:[place] : 1960 Planned Disposition: Anticipated Discharge Date: Discharge Date: Expected LOS: Initial Reviewer: [id number] Initial Review Date: 08/28/2019 Generated: 09/04/19 10:13 pm Comments DCP- Discharge Planning Updated by [email or web address]: Meliza Ghosh on 09/04/19 8:[address] CM spoke with patient to see if she would possibly be interested in Inpt Rehab. CM explained that [facility] is the only facility in the area that will take Medicaid. Patient agreed and CARLY signed and CARLY for AAA for home health services. CM will call [facility] to see if they would possibly be able to accept patient. CM will continue to follow and assist as needed with discharge planning / needs. DCP- Discharge Planning Updated by [email or web address]: Meliza Ghosh on 08/29/19 7:[address] LATE ENTRY 08/28/19 Patient Name: ISABELLA MEYER Admission Status: ER Accout number: [id number] Admission Date: 08-27-2019 : 1960 Admission Diagnosis: Attending: REJI KEYS Current LOS: 1 Anticipated DC Date: Planned Disposition: Primary Insurance: MEDICAID [place] Discharge Planning Comments: CM met with patient's son Madan Nguyen [phone] to complete initial dc planning assessment. CM educated patient on the CM role and verbal consent given by patient to complete assessment. Patient is currently on vent sedated. Patient lives at home alone where she is independent with her care. At discharge patient plans to return home and feels this is a safe discharge. CM discussed availability of home health, rehab services, and medical equipment. Her son will be her laborer driver home. Madan has requested patient to discharge with Home Health CARLY signed. Uncertain at this time what patient's discharge needs will be. CM will continue to follow and will assist as needed with dc plans/needs. Champion Of Sustainable Design: Meliza Ghosh DCPIA - Discharge Planning Initial Assessment Updated by [email or web address]: Meliza Ghosh on 08/29/19 8:05 pm * How many steps to enter\exit or inside your home? 15 * PCP MICHELLE LINDSAY * [facility] * Preadmission Environment Home Alone * ADLs Independent * Equipment Shower Chair * List name and contact numbers for known caregivers / representatives who currently or will assist patient after discharge: MADAN NGUYEN - SON - [phone] * Verbal permission to speak to the caregivers and representatives has been obtained from the patient. N/A * Community resources currently utilized None * Additional services required to return to the preadmission environment? No * Can the patient safely return to the preadmission environment? Yes * Has this patient been hospitalized within the prior 30 days at any hospital? No Coverage Notice Reviewer: [id number] - Meliza Ghosh Notice Issued Date-Time: 08/29/2019 20:00 Notice Type: Patient Choice Letter Notice Delivered To: Family Member Relationship to Patient: Son Remote Broadcast Engineer Name: Madan Ngueyn Delivery Method: HAND - Hand Delivered Melinda Days: Prior Verbal Notification: Recipient Understood Notice: Yes Recipient Signature: Yes Med Rec Note Co-signed by Attending: Coverage Notice Comment: CARLY for HH Last DP export: 08/29/19 7:10 p Patient Name: ISABELLA MEYER Page [id number] at 2114 All edits/amendments must be made on the electronic document DICTATION DATE: 09/04/192112 PIPE MACHINE OPERATOR: KENYA 09/04/192112 RPT#: [id number] DC DATE: STATUS: ADM IN [facility] [address] [place] [address] END OF REPORT
--- NOTE | 2019-09-04 21:20 | MORECARE ---
CASE MANAGEMENT DISCHARGE SUMMARY PATIENT: ISABELLA MEYER UNIT: [id number] ADM DATE: 08/27/19 AGE: 59 : 60 SEX: F ROOM/BED: D.3610 AUTHOR: ROMAN,DOC PHYSICIAN: REFERRING PHYSICIAN: REJI KEYS DO DATE OF SERVICE: 09/04/19 Discharge Plan Patient Name: ISABELLA MEYER Facility: [facility]:[place] : 1960 Planned Disposition: Anticipated Discharge Date: Discharge Date: Expected LOS: Initial Reviewer: [id number] Initial Review Date: 08/28/2019 Generated: 09/04/19 10:20 pm Comments DCP- Discharge Planning Updated by [email or web address]: Meliza Ghosh on 09/04/19 8:[address] CM spoke with patient to see if she would possibly be interested in Inpt Rehab. CM explained that [facility] is the only facility in the area that will take Medicaid. Patient agreed and CARLY signed and CARLY for AAA for home health services. CM will call [facility] to see if they would possibly be able to accept patient. CM will continue to follow and assist as needed with discharge planning / needs. DCP- Discharge Planning Updated by [email or web address]: Meliza Ghosh on 08/29/19 7:[address] LATE ENTRY 08/28/19 Patient Name: ISABELLA MEYER Admission Status: ER Accout number: [id number] Admission Date: 08-27-2019 : 1960 Admission Diagnosis: Attending: REJI KEYS Current LOS: 1 Anticipated DC Date: Planned Disposition: Primary Insurance: MEDICAID [place] Discharge Planning Comments: CM met with patient's son Madan Nguyen [phone] to complete initial dc planning assessment. CM educated patient on the CM role and verbal consent given by patient to complete assessment. Patient is currently on vent sedated. Patient lives at home alone where she is independent with her care. At discharge patient plans to return home and feels this is a safe discharge. CM discussed availability of home health, rehab services, and medical equipment. Her son will be her bus driver home. Madan has requested patient to discharge with Home Health CARLY signed. Uncertain at this time what patient's discharge needs will be. CM will continue to follow and will assist as needed with dc plans/needs. Convenience Store Clerk: Meliza Ghosh DCPIA - Discharge Planning Initial Assessment Updated by [id number]: Meliza Ghosh on 08/29/19 8:05 pm * How many steps to enter\exit or inside your home? 15 * PCP MICHELLE LINDSAY * [facility] * Preadmission Environment Home Alone * ADLs Independent * Equipment Shower Chair * List name and contact numbers for known caregivers / representatives who currently or will assist patient after discharge: MADAN NGUYEN - SON - [phone] * Verbal permission to speak to the caregivers and representatives has been obtained from the patient. N/A * Community resources currently utilized None * Additional services required to return to the preadmission environment? No * Can the patient safely return to the preadmission environment? Yes * Has this patient been hospitalized within the prior 30 days at any hospital? No Coverage Notice Reviewer: [id number] - Meliza Ghosh Notice Issued Date-Time: 08/29/2019 20:00 Notice Type: Patient Choice Letter Notice Delivered To: Family Member Relationship to Patient: Son Production Operations Inspector Name: Madan Nguyen Delivery Method: HAND - Hand Delivered Melinda Days: Prior Verbal Notification: Recipient Understood Notice: Yes Recipient Signature: Yes Med Rec Note Co-signed by Attending: Coverage Notice Comment: CARLY for HH Last DP export: 08/29/19 7:10 p Patient Name: ISABELLA MEYER Page [id number] at 2120 All edits/amendments must be made on the electronic document DICTATION DATE: 09/04/192119 COLLECTION SUPERVISOR: KENYA 09/04/192119 RPT#: [id number] DC DATE: STATUS: ADM IN [facility] [address] [place] [address] END OF REPORT
--- NOTE | 2019-09-04 21:52 | NUR ---
PT LYING IN BED AWAKE ALERT AND ORIENTED x4. NO SIGNS OR SYMPTOMS OF DISTRESS NOTED. RESPIRATIONS EVEN AND UNLABORED. NO COMPLAINTS OF PAIN AT THIS TIME. PT IS UP WITH ASSIST. BOWELL SOUND ACTIVE x4 LOOSE WATERY BOWELL MOVEMENT x3 NOTED. IMODIUM GIVEN. FAMILY IS AT BEDSIDE. +2 PITTING EDMA NOTED TO FEET BILATERALLY. PEDAL PULSE ARE WEAK BUT PRESENT BILATERLLY. PT ENCOURGED TO CALL FOR HELP WHEN GETTING IN AND OUT OF BED. CALL LIGHT WITHIN REACH AND BED IS IN LOWEST POSITION. WILL CONTINUE TO MONITOR
[2019-09-05] VITALS: BP 115/63
[2019-09-05 04:00] VITALS: BP 108/52
--- NOTE | 2019-09-05 05:21 | NUR ---
I have reviewed this patient and I concur with the Shift Assessment completed by the Licensed Practical Nurse today this shift.
--- NOTE | 2019-09-05 05:43 | NUR ---
PT LYING IN BED RESTING WITH EYES CLOSED. EAISLY AWAKEN WITH VERBAL STIMULATION. NO COMPLAINTS OF PAIN AT THIS TIME. CALL LIGHT WITHIN REACH BED IS IN LOWEST POSITION. PT ENCOURAGED TP CALL FOR HELP WHEN GETTING IN AND OUT OF BED. REDENED AREA NOTED TO VAGINA AREA CREAM IS BEING APPLIED PRN. WILL CONTINUE TO MONITOR.
[2019-09-05 06:39] LABS: BASOPHILS 0.2 % (0-2); EOSINOPHILS 1.1 % (0-7); HEMATOCRIT 30.1 % (36.0-48.0); HEMOGLOBIN 9.8 g/dL (12-16); IMMATURE GRANULOCYTES 3.5 % (0-5); LYMPHOCYTES 23.1 % (15-50); MCH 27.1 pg (26.0-34.0); MCHC 32.6 g/dL (31.0-37.0); MCV 83.1 fL (80.0-100.0); MONOCYTES 8.8 % (2-11); NEUTROPHILS 63.3 % (40-80); RBC 3.62 10x6/uL (4.00-5.40); RDW 14.1 % (11.5-14.5); WBC 6.6 10x3/uL (4.8-10.8)
[2019-09-05 06:52] LABS: PLATELET COUNT 151 10x3/uL (130-400)
[2019-09-05 07:11] LABS: ALBUMIN 1.6 g/dL (3.4-5.0); ALKALINE PHOSPHATASE 77 U/L (30-120); ALT (SGPT) 14 U/L (10-68); BILIRUBIN - TOTAL 0.25 mg/dL (0.2-1.3); CALC OSMOLALITY 276 mosm/kg (275-300); CALCIUM 7.5 mg/dL (8.5-10.1); CARBON DIOXIDE 28.1 mmol/L (21.0-32.0); CHLORIDE - SERUM 105 mmol/L (98-107); CREATININE - SERUM 0.4 mg/dL (0.6-1.3); GLUCOSE 97 mg/dL (74-106); POTASSIUM - SERUM 3.2 mmol/L (3.5-5.1); PROTEIN - SERUM 4.3 g/dL (6.4-8.2); SODIUM 140 mmol/L (136-145); UREA NITROGEN 7 mg/dL (7-18); eGFR NON AFRICAN AMERICAN > 90 mL/min (90-120)
[2019-09-05 07:49] VITALS: BP 119/68
--- NOTE | 2019-09-05 09:00 | NUR ---
PT HAS ORDER FOR TELEMETRY HOWEVER NONE IN PLACE. REQUESTED FROM [employer] WILL APPLY WHEN ITS AVAILABLE.
[2019-09-05 11:06] VITALS: BP 103/59
--- NOTE | 2019-09-05 12:59 | NUR ---
PTS R.UPPER ARM PICC LINE DRSG WAS PEELING OFF AND NOT CHANGED SINCE 08/27/19. STERILE DRSG CHANGE PROVIDED PER PROTOCOL. TEACHING PROVIDED ON HOW TO WATCH IT AND CARE FOR IT AND MAKE SURE TO TELL THE NURSES IF ITS NOT ADHERED TO SKIN. BIOPATCH INTACT, DRSG ADHERED TO SKIN, SWAB CAPS IN USE. PT SITTING UP IN BEDSIDE CHAIR VISITING WITH A FRIEND. CL IN REACH. WILL CTM.
--- NOTE | 2019-09-05 13:36 | MORECARE ---
CASE MANAGEMENT DISCHARGE SUMMARY PATIENT: ISABELLA MEYER UNIT: [id number] ADM DATE: 08/27/19 AGE: 59 : 60 SEX: F ROOM/BED: D.2679 AUTHOR: ROMAN,DOC PHYSICIAN: REFERRING PHYSICIAN: REJI KEYS DO DATE OF SERVICE: 09/05/19 Discharge Plan Patient Name: ISABELLA MEYER Facility: [facility]:[place] : 1960 Planned Disposition: Anticipated Discharge Date: Discharge Date: Expected LOS: Initial Reviewer: [id number] Initial Review Date: 08/28/2019 Generated: 09/05/19 2:35 pm Comments DCP- Discharge Planning Updated by [email or web address]: Meliza Ghosh on 09/04/19 8:[address] CM spoke with patient to see if she would possibly be interested in Inpt Rehab. CM explained that [facility] is the only facility in the area that will take Medicaid. Patient agreed and CARLY signed and CARLY for AAA for home health services. CM will call [facility] to see if they would possibly be able to accept patient. CM will continue to follow and assist as needed with discharge planning / needs. DCP- Discharge Planning Updated by [email or web address]: Meliza Ghosh on 08/29/19 7:[address] LATE ENTRY 08/28/19 Patient Name: ISABELLA MEYER Admission Status: ER Accout number: [id number] Admission Date: 08-27-2019 : 1960 Admission Diagnosis: Attending: REJI KEYS Current LOS: 1 Anticipated DC Date: Planned Disposition: Primary Insurance: MEDICAID [place] Discharge Planning Comments: CM met with patient's son Madan Nguyen [phone] to complete initial dc planning assessment. CM educated patient on the CM role and verbal consent given by patient to complete assessment. Patient is currently on vent sedated. Patient lives at home alone where she is independent with her care. At discharge patient plans to return home and feels this is a safe discharge. CM discussed availability of home health, rehab services, and medical equipment. Her son will be her wrecker driver home. Madan has requested patient to discharge with Home Health CARLY signed. Uncertain at this time what patient's discharge needs will be. CM will continue to follow and will assist as needed with dc plans/needs. Geophysical Laboratory Director: Meliza Ghosh DCPIA - Discharge Planning Initial Assessment Updated by [email or web address]: Meliza Ghosh on 08/29/19 8:05 pm * How many steps to enter\exit or inside your home? 15 * PCP MICHELLE LINDSAY * [facility] * Preadmission Environment Home Alone * ADLs Independent * Equipment Shower Chair * List name and contact numbers for known caregivers / representatives who currently or will assist patient after discharge: MADAN NGUYEN - SON - [phone] * Verbal permission to speak to the caregivers and representatives has been obtained from the patient. N/A * Community resources currently utilized None * Additional services required to return to the preadmission environment? No * Can the patient safely return to the preadmission environment? Yes * Has this patient been hospitalized within the prior 30 days at any hospital? No External Providers External Provider: [facility] Contact Date: Service Request Date: Service Type: Resolution: Reviewer: Comments: Coverage Notice Reviewer: [email or web address] Fernando Ghosh Notice Issued Date-Time: 08/29/2019 20:00 Notice Type: Patient Choice Letter Notice Delivered To: Family Member Relationship to Patient: Son Solids Control Technician Name: Madan Nguyen Delivery Method: HAND - Hand Delivered Melinda Days: Prior Verbal Notification: Recipient Understood Notice: Yes Recipient Signature: Yes Med Rec Note Co-signed by Attending: Coverage Notice Comment: [facility] for Reviewer: [id number] Fernando Ghosh Notice Issued Date-Time: 09/04/2019 12:30 Notice Type: Patient Choice Letter Notice Delivered To: Patient Relationship to Patient: Solids Control Technician Name: Delivery Method: HAND - Hand Delivered Melinda Days: Prior Verbal Notification: Recipient Understood Notice: Yes Recipient Signature: Yes Med Rec Note Co-signed by Attending: Coverage Notice Comment: [facility] Last DP export: 09/04/19 8:20 p Patient Name: ISABELLA MEYER Page [id number] at 1336 All edits/amendments must be made on the electronic document DICTATION DATE: 09/05/19 133 STEAM DRIER TENDER: DM 09/05/19 133 RPT#: [id number] DC DATE: STATUS: ADM IN [facility] [address] [place] [address] END OF REPORT
--- NOTE | 2019-09-05 13:55 | MORECARE ---
CASE MANAGEMENT DISCHARGE SUMMARY PATIENT: ISABELLA MEYER UNIT: [id number] ADM DATE: 08/27/19 AGE: 59 : 60 SEX: F ROOM/BED: D.1472 AUTHOR: ROMAN,DOC PHYSICIAN: REFERRING PHYSICIAN: REJI KEYS DO DATE OF SERVICE: 09/05/19 Discharge Plan Patient Name: ISABELLA MEYER Facility: [facility]:[place] : 1960 Planned Disposition: Anticipated Discharge Date: Discharge Date: Expected LOS: Initial Reviewer: [email or web address] Initial Review Date: 08/28/2019 Generated: 09/05/19 2:54 pm Comments DCP- Discharge Planning Updated by [id number]: Meliza Ghosh on 09/05/19 12:[address] CM called and faxed records to [facility]. Gauri with [facility] is to evaluate and let CM know today whether or not they can accept patient. CARLY signed. CM will continue to follow and assist as needed with discharge planning / needs. DCP- Discharge Planning Updated by [id number]: Meliza Ghosh on 09/04/19 8:[address] CM spoke with patient to see if she would possibly be interested in Inpt Rehab. CM explained that [facility] is the only facility in the area that will take Medicaid. Patient agreed and CARLY signed and CARLY for AAA for home health services. CM will call [facility] to see if they would possibly be able to accept patient. CM will continue to follow and assist as needed with discharge planning / needs. DCP- Discharge Planning Updated by [id number]: Meliza Ghosh on 08/29/19 7:[address] LATE ENTRY 08/28/19 Patient Name: ISABELLA MEYER Admission Status: ER Accout number: [id number] Admission Date: 08-27-2019 : 1960 Admission Diagnosis: Attending: REJI KEYS Current LOS: 1 Anticipated DC Date: Planned Disposition: Primary Insurance: MEDICAID [place] Discharge Planning Comments: CM met with patient's son Madan Nguyen [phone] to complete initial dc planning assessment. CM educated patient on the CM role and verbal consent given by patient to complete assessment. Patient is currently on vent sedated. Patient lives at home alone where she is independent with her care. At discharge patient plans to return home and feels this is a safe discharge. CM discussed availability of home health, rehab services, and medical equipment. Her son will be her lumber driver home. Madan has requested patient to discharge with Home Health CARLY signed. Uncertain at this time what patient's discharge needs will be. CM will continue to follow and will assist as needed with dc plans/needs. Museum Service Scheduler: Meliza Ghosh DCPIA - Discharge Planning Initial Assessment Updated by [email or web address]: Meliza Ghosh on 08/29/19 8:05 pm * How many steps to enter\exit or inside your home? 15 * PCP MICHELLE LINDSAY * [facility] * Preadmission Environment Home Alone * ADLs Independent * Equipment Shower Chair * List name and contact numbers for known caregivers / representatives who currently or will assist patient after discharge: MADAN NGUYEN - SON - [phone] * Verbal permission to speak to the caregivers and representatives has been obtained from the patient. N/A * Community resources currently utilized None * Additional services required to return to the preadmission environment? No * Can the patient safely return to the preadmission environment? Yes * Has this patient been hospitalized within the prior 30 days at any hospital? No Coverage Notice Reviewer: [id number] Fernando Ghosh Notice Issued Date-Time: 08/29/2019 20:00 Notice Type: Patient Choice Letter Notice Delivered To: Family Member Relationship to Patient: Son Rib Cloth Knitter Name: Madan Nguyen Delivery Method: HAND - Hand Delivered Melinda Days: Prior Verbal Notification: Recipient Understood Notice: Yes Recipient Signature: Yes Med Rec Note Co-signed by Attending: Coverage Notice Comment: CARLY for Reviewer: [id number] Fernando Ghosh Notice Issued Date-Time: 09/04/2019 12:30 Notice Type: Patient Choice Letter Notice Delivered To: Patient Relationship to Patient: Rib Cloth Knitter Name: Delivery Method: HAND - Hand Delivered Melinda Days: Prior Verbal Notification: Recipient Understood Notice: Yes Recipient Signature: Yes Med Rec Note Co-signed by Attending: Coverage Notice Comment: [facility] Last DP export: 09/05/19 12:36 p Patient Name: ISABELLA MEYER Page [id number] at 1355 All edits/amendments must be made on the electronic document DICTATION DATE: 09/05/19 1354 EMERGENCY CARE ATTENDANT: KENYA 09/05/19 1354 RPT#: [id number] DC DATE: STATUS: ADM IN [facility] [address] [place] [address] END OF REPORT
--- NOTE | 2019-09-05 14:00 | NUR ---
TELEMETRY PLACED ORDERED.
[2019-09-05 15:43] VITALS: BP 98/52
[2019-09-05] MEDS ORDERED: AMIODARONE HCL200 MG PO (15:44)
--- NOTE | 2019-09-05 15:55 | NUR ---
POTASSIUM REPLACED PER PROTOCOL AND NO NEED FOR FURTHER REPLACEMENT. PT SITTING UP IN BEDSIDE CHAIR RESTING QUIETLY. WILL CTM.
--- NOTE | 2019-09-05 16:04 | MORECARE ---
CASE MANAGEMENT DISCHARGE SUMMARY PATIENT: ISABELLA MEYER UNIT: [id number] ADM DATE: 08/27/19 AGE: 59 : 60 SEX: F ROOM/BED: D.4928 AUTHOR: ROMAN,DOC PHYSICIAN: REFERRING PHYSICIAN: REJI KEYS DO DATE OF SERVICE: 09/05/19 Discharge Plan Patient Name: ISABELLA MEYER Facility: [facility]:[place] : 1960 Planned Disposition: Anticipated Discharge Date: Discharge Date: Expected LOS: Initial Reviewer: [id number] Initial Review Date: 08/28/2019 Generated: 09/05/19 5:04 pm Comments DCP- Discharge Planning Updated by [id number]: Meliza Ghosh on 09/05/19 12:[address] CM called and faxed records to [facility]. Gauri with [facility] is to evaluate and let CM know today whether or not they can accept patient. CARLY signed. CM will continue to follow and assist as needed with discharge planning / needs. DCP- Discharge Planning Updated by [id number]: Meliza Ghosh on 09/04/19 8:[address] CM spoke with patient to see if she would possibly be interested in Inpt Rehab. CM explained that [facility] is the only facility in the area that will take Medicaid. Patient agreed and CARLY signed and CARLY for AAA for home health services. CM will call [facility] to see if they would possibly be able to accept patient. CM will continue to follow and assist as needed with discharge planning / needs. DCP- Discharge Planning Updated by [id number]: Meliza Ghosh on 08/29/19 7:[address] LATE ENTRY 08/28/19 Patient Name: ISABELLA MEYER Admission Status: ER Accout number: [id number] Admission Date: 08-27-2019 : 1960 Admission Diagnosis: Attending: REJI KEYS Current LOS: 1 Anticipated DC Date: Planned Disposition: Primary Insurance: MEDICAID [place] Discharge Planning Comments: CM met with patient's son Madan Nguyen [phone] to complete initial dc planning assessment. CM educated patient on the CM role and verbal consent given by patient to complete assessment. Patient is currently on vent sedated. Patient lives at home alone where she is independent with her care. At discharge patient plans to return home and feels this is a safe discharge. CM discussed availability of home health, rehab services, and medical equipment. Her son will be her bookmobile driver home. Madan has requested patient to discharge with Home Health CARLY signed. Uncertain at this time what patient's discharge needs will be. CM will continue to follow and will assist as needed with dc plans/needs. Machinist Outside: Meliza Ghosh DCPIA - Discharge Planning Initial Assessment Updated by [id number]: Meliza Ghosh on 08/29/19 8:05 pm * How many steps to enter\exit or inside your home? 15 * PCP MICHELLE LINDSAY * [facility] * Preadmission Environment Home Alone * ADLs Independent * Equipment Shower Chair * List name and contact numbers for known caregivers / representatives who currently or will assist patient after discharge: MADAN NGUYEN - SON - [phone] * Verbal permission to speak to the caregivers and representatives has been obtained from the patient. N/A * Community resources currently utilized None * Additional services required to return to the preadmission environment? No * Can the patient safely return to the preadmission environment? Yes * Has this patient been hospitalized within the prior 30 days at any hospital? No External Providers External Provider: [facility] Next Contact Date: 09/05/2019 Service Request Date: Service Type: Resolution: Reviewer: Comments: Coverage Notice Reviewer: [id number] Fernando Ghosh Notice Issued Date-Time: 08/29/2019 20:00 Notice Type: Patient Choice Letter Notice Delivered To: Family Member Relationship to Patient: Son Filbert Grower Name: Madan Nguyen Delivery Method: HAND - Hand Delivered Melinda Days: Prior Verbal Notification: Recipient Understood Notice: Yes Recipient Signature: Yes Med Rec Note Co-signed by Attending: Coverage Notice Comment: CARLY for Reviewer: [id number] Fernando Ghosh Notice Issued Date-Time: 09/04/2019 12:30 Notice Type: Patient Choice Letter Notice Delivered To: Patient Relationship to Patient: Filbert Grower Name: Delivery Method: HAND - Hand Delivered Melinda Days: Prior Verbal Notification: Recipient Understood Notice: Yes Recipient Signature: Yes Med Rec Note Co-signed by Attending: Coverage Notice Comment: [facility] Last DP export: 09/05/19 12:55 p Patient Name: ISABELLA MEYER Page 44993 at 1604 All edits/amendments must be made on the electronic document DICTATION DATE: 09/05/191603 SENIOR EXECUTIVE COMPENSATION ANALYST: KENYA 09/05/19 1604 RPT#: [id number] DC DATE: STATUS: ADM IN [facility] [address] [place] [address] END OF REPORT
--- NOTE | 2019-09-05 16:13 | MORECARE ---
CASE MANAGEMENT DISCHARGE SUMMARY PATIENT: ISABELLA MEYER UNIT: [id number] ADM DATE: 08/27/19 AGE: 59 : 60 SEX: F ROOM/BED: D.5208 AUTHOR: ROMAN,DOC PHYSICIAN: REFERRING PHYSICIAN: REJI KEYS DO DATE OF SERVICE: 09/05/19 Discharge Plan Patient Name: ISABELLA MEYER Facility: [facility]:[place] : 1960 Planned Disposition: Inpatient Rehab Anticipated Discharge Date: 09/05/19 Discharge Date: Expected LOS: 9 Initial Reviewer: [email or web address] Initial Review Date: 08/28/2019 Generated: 09/05/19 5:12 pm Comments DCP- Discharge Planning Updated by [id number]: Meliza Ghosh on 09/05/19 12:[address] CM called and faxed records to [facility] inpatient Rehab. Gauri with [facility] is to evaluate and let CM know today whether or not they can accept patient. CARLY signed. CM will continue to follow and assist as needed with discharge planning / needs. DCP- Discharge Planning Updated by [id number]: Meliza Ghosh on 09/04/19 8:[address] CM spoke with patient to see if she would possibly be interested in Inpt Rehab. CM explained that [facility] is the only facility in the area that will take Medicaid. Patient agreed and CARLY signed and CARLY for AAA for home health services. CM will call [facility] to see if they would possibly be able to accept patient. CM will continue to follow and assist as needed with discharge planning / needs. DCP- Discharge Planning Updated by [email or web address]: Meliza Ghosh on 08/29/19 7:[address] LATE ENTRY 08/28/19 Patient Name: ISABELLA MEYER Admission Status: ER Accout number: [id number] Admission Date: 08-27-2019 : 1960 Admission Diagnosis: Attending: REJI KEYS Current LOS: 1 Anticipated DC Date: Planned Disposition: Primary Insurance: MEDICAID [place] Discharge Planning Comments: CM met with patient's son Madan Nguyen [phone] to complete initial dc planning assessment. CM educated patient on the CM role and verbal consent given by patient to complete assessment. Patient is currently on vent sedated. Patient lives at home alone where she is independent with her care. At discharge patient plans to return home and feels this is a safe discharge. CM discussed availability of home health, rehab services, and medical equipment. 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 Madan has requested patient to discharge with Home Health CARLY signed. Uncertain at this time what patient's discharge needs will be. CM will continue to follow and will assist as needed with dc plans/needs. Mutton Puncher: Meliza Ghosh DCPIA - Discharge Planning Initial Assessment Updated by [email or web address]: Meliza Ghosh on 08/29/19 8:05 pm * How many steps to enter\exit or inside your home? 15 * PCP MICHELLE LINDSAY * [facility] * Preadmission Environment Home Alone * ADLs Independent * Equipment Shower Chair * List name and contact numbers for known caregivers / representatives who currently or will assist patient after discharge: MADAN NGUYEN - SON - [phone] * Verbal permission to speak to the caregivers and representatives has been obtained from the patient. N/A * Community resources currently utilized None * Additional services required to return to the preadmission environment? No * Can the patient safely return to the preadmission environment? Yes * Has this patient been hospitalized within the prior 30 days at any hospital? No Coverage Notice Reviewer: [email or web address] Fernando Ghosh Notice Issued Date-Time: 08/29/2019 20:00 Notice Type: Patient Choice Letter Notice Delivered To: Family Member Relationship to Patient: Son Spring Encaser Name: Madan Nguyen Delivery Method: HAND - Hand Delivered Melinda Days: Prior Verbal Notification: Recipient Understood Notice: Yes Recipient Signature: Yes Med Rec Note Co-signed by Attending: Coverage Notice Comment: CARLY for Reviewer: [id number] - Meliza hGosh Notice Issued Date-Time: 09/04/2019 12:30 Notice Type: Patient Choice Letter Notice Delivered To: Patient Relationship to Patient: Spring Encaser Name: Delivery Method: HAND - Hand Delivered Melinda Days: Prior Verbal Notification: Recipient Understood Notice: Yes Recipient Signature: Yes Med Rec Note Co-signed by Attending: Coverage Notice Comment: [facility] Last DP export: 09/05/19 3:04 p Patient Name: ISABELLA MEYER Page [id number] at 1613 All edits/amendments must be made on the electronic document DICTATION DATE: 09/05/191611 LIBRARY TECHNICAL ASSISTANT: KENYA 09/05/191611 RPT#: [id number] DC DATE: STATUS: ADM IN [facility] [address] [place] [address] END OF REPORT
--- NOTE | 2019-09-05 16:23 | MORECARE ---
CASE MANAGEMENT DISCHARGE SUMMARY PATIENT: ISABELLA MEYER UNIT: [id number] ADM DATE: 08/27/19 AGE: 59 : 60 SEX: F ROOM/BED: D.1696 AUTHOR: ROMAN,DOC PHYSICIAN: REFERRING PHYSICIAN: REJI KEYS DO DATE OF SERVICE: 09/05/19 Discharge Plan Patient Name: ISABELLA MEYER Facility: [facility]:[place] : 1960 Planned Disposition: Inpatient Rehab Anticipated Discharge Date: 09/05/19 Discharge Date: Expected LOS: 9 Initial Reviewer: [email or web address] Initial Review Date: 08/28/2019 Generated: 09/05/19 5:22 pm Comments DCP- Discharge Planning Updated by [email or web address]: César Rico on 09/05/19 3:[address] Patient Name: ISABELLA MEYER Encounter No: [id number] : 1960 Primary Insurance: MEDICAID [place] Anticipated DC Date: 09-05-2019 Planned Disposition: Inpatient Rehab External Planned Provider: [facility] DCP follow-up note: DORIAN SPOKE TO PT IN ROOM REGARDING INPATIENT REHAB AT [facility], PT IN AGREEMENT AND REPORTS THIS TO BE HER ONLY HOSPITALIZATION SINCE JANUARY 2019. PT REPORTS HER SON WILL BRING CLOTHES TO GO TO REHAB TODAY. DORIAN CALLED AND SPOKE TO LEONARDA AT [phone], ASKED FOR REVIEW FOR ADMISSION TODAY. CM RECEIVED RETURN CALL, THEY WILL ACCEPT TODAY FOR INPATIENT REHAB. DORIAN NOTIFIED PT WHO IS IN AGREEMENT. DORIAN NOTIFIED DR. WAGGONER AND RECEIVED DISCHARGE ORDERS. DORIAN FAXED DISCHARGE INFORMATION AND CURRENT MAR TO [facility] AT [phone]. DONNY CALLED AND PROVIDED DISCHARGE INSTRUCTIONS FOR [facility]. TERADATA SOLUTION ARCHITECT AND BEDSIDE NURSE NOTIFIED. NURSE REPORT TO BE CALLED TO [facility], . PT WILL ADMIT TO ROOM 111. [facility] TO PRODUCT SAFETY TEST ENGINEER AT 1730 HOURS TODAY. César Rico CASE MANAGEMENT DCP- Discharge Planning Updated by [email or web address]: Meliza Ghosh on 09/05/19 12:[address] DORIAN called and faxed records to [facility] inpatient Rehab. Gauri Jaimes is to evaluate and let CM know today whether or not they can accept patient. CARLY signed. CM will continue to follow and assist as needed with discharge planning / needs. DCP- Discharge Planning Updated by [id number]: Meliza Ghosh on 09/04/19 8:[address] CM spoke with patient to see if she would possibly be interested in Inpt Rehab. CM explained [facility] the only facility in the area that will take Medicaid. Patient agreed and CARLY signed and CARLY for AAA for home health services. CM will call [facility] to see if they would possibly be able to accept patient. CM will continue to follow and assist as needed with discharge planning / needs. DCP- Discharge Planning Updated by [email or web address]: Meliza Ghosh on 08/29/19 7:[address] LATE ENTRY 08/28/19 Patient Name: ISABELLA MEYER Admission Status: ER Accout number: [id number] Admission Date: 08-27-2019 : 1960 Admission Diagnosis: Attending: REJI KEYS Current LOS: 1 Anticipated DC Date: Planned Disposition: Primary Insurance: MEDICAID [place] Discharge Planning Comments: CM met with patient's son Madan Nguyen [phone] to complete initial dc planning assessment. CM educated patient on the CM role and verbal consent given by patient to complete assessment. Patient is currently on vent sedated. Patient lives at home alone where she is independent with her care. At discharge patient plans to return home and feels this is a safe discharge. CM discussed availability of home health, rehab services, and medical equipment. Her son will be her skidder driver home. Madan has requested patient to discharge with Home Health CARLY signed. Uncertain at this time what patient's discharge needs will be. CM will continue to follow and will assist as needed with dc plans/needs. Senior Data Integration Developer: Meliza Ghosh DCPIA - Discharge Planning Initial Assessment Updated by [id number]: Meliza Ghosh on 08/29/19 8:05 pm * How many steps to enter\exit or inside your home? 15 * PCP MICHELLE LINDSAY * [facility] * Preadmission Environment Home Alone * ADLs Independent * Equipment Shower Chair * List name and contact numbers for known caregivers / representatives who currently or will assist patient after discharge: MADAN NGUYEN - SON - [phone] * Verbal permission to speak to the caregivers and representatives has been obtained from the patient. N/A * Community resources currently utilized None * Additional services required to return to the preadmission environment? No * Can the patient safely return to the preadmission environment? Yes * Has this patient been hospitalized within the prior 30 days at any hospital? No Coverage Notice Reviewer: [email or web address] Fernando Ghosh Notice Issued Date-Time: 08/29/2019 20:00 Notice Type: Patient Choice Letter Notice Delivered To: Family Member Relationship to Patient: Son Dolphin Researcher Name: Madan Nguyen Delivery Method: HAND - Hand Delivered Melinda Days: Prior Verbal Notification: Recipient Understood Notice: Yes Recipient Signature: Yes Med Rec Note Co-signed by Attending: Coverage Notice Comment: [facility] for Reviewer: [id number] Fernando Ghosh Notice Issued Date-Time: 09/04/2019 12:30 Notice Type: Patient Choice Letter Notice Delivered To: Patient Relationship to Patient: Dolphin Researcher Name: Delivery Method: HAND - Hand Delivered Melinda Days: Prior Verbal Notification: Recipient Understood Notice: Yes Recipient Signature: Yes Med Rec Note Co-signed by Attending: Coverage Notice Comment: [facility] Last DP export: 09/05/19 3:13 p Patient Name: ISABELLA MEYER Page [id number] at 1623 All edits/amendments must be made on the electronic document DICTATION DATE: 09/05/191621 HEALTH EDUCATION DIRECTOR: KENYA 09/05/191621 RPT#: [id number] DC DATE: STATUS: ADM IN [facility] [address] [place] [address] END OF REPORT
--- NOTE | 2019-09-05 16:30 | NUR ---
RIGHT UPPER ARM PICC REMOVED USING STERILE TECHNIQUE. COVERED WITH BIOPATCH AND OPSITE. DATED. TOERATED WELL. INSTRUCTED TO LAY FLAT X 15 MIN.
--- NOTE | 2019-09-05 16:35 | NUR ---
HOME MED REC IS NOT COMPLETE FOR DISCHARGE WITH CORRECT AMOUNTS OF MEDICATION. I CALLED DR WAGGONER AND HE STATES, "I WAS JUST GOING BY THE HOME MEDS, SO CORRECT IT AND ASK THE PATIENT".
[2019-09-05] MEDS ORDERED: LAMICTAL100 MG PO (16:48)
[2019-09-05] MEDS ORDERED: SYNTHROID175 MCG PO (16:48)
[2019-09-05] MEDS ORDERED: NOVOLOG100 UNIT/1 (16:48)
[2019-09-05] MEDS ORDERED: LISINOPRIL10 MG PO (16:48)
[2019-09-05] MEDS ORDERED: LEVEMIR IN100 UNITS/ SC (16:49)
--- NOTE | 2019-09-05 16:50 | NUR ---
PER PATIENT PERMISSION, I CALLED [facility] FOR DISCHARGE MEDICATION LIST. NICO MCCORD STATES THAT PATIENT HAS NOT PICKED UP THE L[facility]EMIR SINCE .
--- NOTE | 2019-09-05 17:15 | NUR ---
CALLED [facility] AND GAVE REPORT TO KINSEY CERVANTES. PT IS DRESSED AND HAS BELONGINGS GATHERED. DISCHARGE TEACHING PROVIDED AND PAPERS SIGNED. PT VERBALIZED UNDERSTANDING AND DENIES ANY QUESTIONS OR CONCERNS. FAMILY AT BEDSIDE. TELEMETRY REMOVED AND RETURNED TO [facility]. WILL AWAIT D/C TRANSPORTATION.
--- NOTE | 2019-09-08 10:12 | NUR ---
MEROPENEM STOPPED AT 1730PM, 08/27/19
== END 2019-09-05 17:48 | DRG 637 ==
LOC: D.ER 14:27 → D.ICU 16:14 → D.M2 09-04 13:52
PROVIDERS: Emergency Medicine; Internal Medicine Nephrology; Internal Medicine Pulmonary Disease; ADMIT Family Medicine; ATTEND Family Medicine
PROC: 05HY33Z Insertion of Infusion Device into Upper Vein, Percutaneous Approach (ICD-10-PCS; principal; 2019-08-27)
PROC: 0BH17EZ Insertion of Endotracheal Airway into Trachea, Via Natural or Artificial Opening (ICD-10-PCS; 2019-08-27)
PROC: 5A1955Z Respiratory Ventilation, Greater than 96 Consecutive Hours (ICD-10-PCS; 2019-08-27)
DX: E11.10 Type 2 diabetes mellitus with ketoacidosis without coma (principal); N17.0 Acute kidney failure with tubular necrosis; G92 Toxic encephalopathy; E43 Unspecified severe protein-calorie malnutrition; J96.01 Acute respiratory failure with hypoxia; J15.3 Pneumonia due to streptococcus, group B; E87.2 Acidosis; I47.2 Ventricular tachycardia; E87.1 Hypo-osmolality and hyponatremia; T68.XXXA Hypothermia, initial encounter; I95.9 Hypotension, unspecified; E87.5 Hyperkalemia; D72.829 Elevated white blood cell count, unspecified; E03.9 Hypothyroidism, unspecified; D50.9 Iron deficiency anemia, unspecified; R00.0 Tachycardia, unspecified; E83.41 Hypermagnesemia